=== PATIENT | male | born 1935 | race Hispanic/Latino ===

== ENCOUNTER 2016-12-16 20:58 | Inpatient (IN) | payer MEDICARE ==
--- NOTE | 2016-12-16 21:25 | Emergency Department Report ---
HPI - General Time Seen by Provider: 12/16/16 21:20 - HPI HPI: This is a 81-year-old male who presents to the emergency department by EMS from [facility] with complaint of altered mental status. The patient himself has no complaints at this time, however, allegedly the ECF says he has been acting altered for the past 2 days. Patient has a history of anemia, Raghav body dementia, depressive disorder. The patient himself says that he does not ambulate well. His primary care doctor is listed as Dr. Felix Lemus. Patient is a poor historian secondary to his dementia. He is currently AAO [address] 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 - Social History Smoking Status: Unknown if ever smoked - Medications Home Medications: Home Medications Medication Instructions Recorded Confirmed Last Taken Type Aspirin [Aspirin TAB] 81 mg PO QDAY tablet 09/11/16 09/29/16 Unknown Rx Folic Acid [Folvite] 1 mg PO QDAY tablet 09/11/16 09/29/16 Unknown Rx Losartan [Cozaar] 50 mg PO QDAY tablet 09/11/16 09/29/16 Unknown Rx Metoprolol [Lopressor TAB] 25 mg PO BID #60 tablet 09/11/16 09/29/16 Unknown Rx Rivastigmine Tartrate [Exelon] 1.5 mg PO BID capsule 09/11/16 09/29/16 Unknown Rx Thiamine [Vitamin B-1] 100 mg PO QDAY tablet 09/11/16 09/29/16 Unknown Rx cloNIDine [Catapres] 0.1 mg PO Q8H PRN #90 tablet 09/11/16 09/29/16 Unknown Rx hydrALAZINE [Apresoline TAB] 25 mg PO Q8HR tablet 09/11/16 09/29/16 Unknown Rx risperiDONE [RisperDAL] 0.25 mg PO BID@0800,1400 #60 tablet 09/11/16 09/29/16 Unknown Rx traZODone [Desyrel] 50 mg PO QHS tablet 09/11/16 09/29/16 Unknown Rx ED Review of Systems ROS: Stated complaint: AMS Other details as noted in HPI Comment: Unobtainable due to pts medical conditions Physical Exam - Physical Exam Physical Exam: GENERAL: The patient is well-developed well-nourished. HEENT: Normocephalic. Atraumatic. Extraocular motions are intact. Patient has moist mucous membranes. Pupils equal reactive to light bilaterally. No nystagmus. NECK: Supple. Trachea is midline. CHEST/LUNGS: Clear to auscultation. There is no respiratory distress noted. HEART/CARDIOVASCULAR: Regular. There is no tachycardia. There is no gallop rub or murmur. ABDOMEN: Abdomen is soft, nontender. Patient has normal bowel sounds. There is no abdominal distention. SKIN: Skin is warm and dry. NEURO: The patient is awake, alert. AAO [address] but not time. The patient is cooperative. The patient has no focal neurologic deficits. The patient has normal speech. MUSCULOSKELETAL: There is no tenderness or deformity. There is no limitation range of motion. There is no evidence of acute injury. ED Medical Decision Making - Lab Data Result diagrams: 12/16/16 23:27 12/16/16 23:27 - EKG Data -: EKG Interpreted by Me EKG shows normal: sinus rhythm, axis, intervals, QRS complexes (RBBB), ST-T waves Rate: normal - EKG Data When compared to previous EKG there are: previous EKG unavailable Interpretation: other (RBBB) - Radiology Data Radiology results: report reviewed, image reviewed interpreted by me: Chest x-ray did not show any acute process. Heart is normal shape and size. No effusions. No pneumothorax. No signs of pneumonia seen. CT of the head does not show any acute process including no hemorrhage, mass, shift, diffuse edema or skull fracture. - Medical Decision Making 81-year-old male presents to the emergency department with some altered mental status. 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 CT of the head does not show any bleed, shift, mass or any acute process. EKG shows a right bundle-branch block but otherwise no signs of ST elevation MD or ischemia. Most the patient's labs appear unremarkable do not show any etiology of the altered mental status. She the patient's advanced age, his history of Sho body dementia, and the history of change in mental status, patient will be admitted for further evaluation and has been accepted for admission by the hospitalist, Dr. Purcell. - Differential Diagnosis dementia, TIA, CVA, brain bleed, sepsis Critical Care Time: No Critical care attestation.: If time is entered above; I have spent that time in minutes in the direct care of this critically ill patient, excluding procedure time. ED Disposition Clinical Impression: Altered mental status Dementia Qualifiers: Dementia type: unspecified type Dementia behavioral disturbance: without behavioral disturbance Qualified Code(s): F03.90 - Unspecified dementia without behavioral disturbance Disposition: OP ADMITTED IP TO THIS HOSP Is pt being admited?: Yes Condition: Stable Time of Disposition: 04:48
--- NOTE | 2016-12-16 22:48 | Cat Scan Report ---
FINAL REPORT PROCEDURE: CT HEAD/BRAIN WO CON TECHNIQUE: Computerized tomography of the head was performed without contrast material. HISTORY: Altered Mental Status COMPARISON: 08/19/2016 FINDINGS: Skull and scalp: Normal. Paranasal sinuses: Complex fluid in material in the right sphenoid sinus. Ventricles and subarachnoid spaces: Moderately enlarged ventricles likely in proportionate degree to volume loss related to atrophy Cerebrum: No evidence of hemorrhage, acute infarction or mass . Cerebellum and brainstem: No evidence of hemorrhage, acute infarction or mass. Vasculature: Dominant left vertebral artery. Comments: Moderate diffuse atrophy with mild periventricular microischemic change and central lacunar infarct disease as well as suspected lacunar infarct disease in the right temporal insula greater than left. These changes appear most likely chronic. If symptoms and or concern persist consider MRI.. IMPRESSION: No acute intracranial pathology suspected at this time
[2016-12-17] LABS: Mucus,Urine FEW /HPF
[2016-12-17 00:03] LABS: INR 1.02 (0.87-1.13)
[2016-12-17 00:04] LABS: Partial Thromboplastin Time 26.9 Sec. (24.2-36.6)
[2016-12-17 00:06] LABS: Alanine Aminotransferase 8 units/L (7-56); Albumin 3.8 g/dL (3.9-5); Albumin/Globulin Ratio 1.1 %; Alkaline Phosphatase 92 units/L (35-129); Anion Gap 18 mmol/L; BUN/Creatinine Ratio 24.28; Bilirubin,Total 0.5 mg/dL (0.1-1.2); Blood Urea Nitrogen 17 mg/dL (9-20); Calcium 9.2 mg/dL (8.4-10.2); Carbon Dioxide 27 mmol/L (22-30); Chloride 96.8 mmol/L (98-107); Creatine Kinase 40 units/L (55-170); Glucose 100 mg/dL (75-100); Potassium 4.6 mmol/L (3.6-5.0); Sodium 137 mmol/L (137-145); Total Protein 7.4 g/dL (6.3-8.2)
[2016-12-17 00:12] LABS: Bilirubin,Urine Negative (Negative); Blood,Urine Moderate (Negative); Ketones,Urine Negative (Negative); PH,Urine 6.5 (5.0-7.0); Protein,Urine <30 mg dL mg/dL (Negative)
[2016-12-17 00:13] LABS: Leukocyte Esterase,Urine Negative (Negative); Nitrite,Urine Negative (Negative); Urobilinogen,Urine < 2.0 mg/dL (<2.0)
[2016-12-17 00:28] LABS: Eosinophils % (Auto) 3.2 % (0.0-4.3)
[2016-12-17 01:46] LABS: Basophils % (Auto) 0.9 % (0.0-1.8); Hematocrit 42.9 % (35.5-45.6); Mean Corpuscular HGB Conc 33 % (32-34); Mean Corpuscular Hemoglobin 28 pg (28-32); Mean Corpuscular Volume 86 fl (84-94); Platelet Count 383 K/mm3 (140-440); Red Blood Count 4.97 M/mm3 (3.65-5.03); Red Cell Distribution Width 14.6 % (13.2-15.2); White Blood Count 9.2 K/mm3 (4.5-11.0)
--- NOTE | 2016-12-17 03:24 | History and Physical Report ---
History of Present Illness Date of examination: 12/17/16 Date of admission: 12/17/16 Chief complaint: AMS History of present illness: This is a 81-year-old male who presents to the emergency department by EMS from [facility] with complaint of altered mental status. The patient himself has no complaints at this time, however, allegedly the correction reports he has been acting altered for the past 2 days. Patient has a history of anemia, Lewy body dementia, depressive disorder. All of the history was obtained from the ER record. Upon my interview, patient was somnolent and lethargic but arousable. Patient poor historian and unable to give any history. He currently is not alert or oriented. However, he complains of no pain. Past History Past Medical History: anemia, other (recent hip fx, lewy body dementia, depression) Past Surgical History: total hip replacement Social history: other (unable to obtain do to mental status) Family history: other (unable to obtain do to mental status) Medications and Allergies Allergies Allergy/AdvReac Type Severity Reaction Status Date / Time No Known Allergies Allergy Unverified 08/16/16 11:38 Home Medications Medication Instructions Recorded Confirmed Last Taken Type Aspirin [Aspirin TAB] 81 mg PO QDAY tablet 09/11/16 09/29/16 Unknown Rx Folic Acid [Folvite] 1 mg PO QDAY tablet 09/11/16 09/29/16 Unknown Rx Losartan [Cozaar] 50 mg PO QDAY tablet 09/11/16 09/29/16 Unknown Rx Metoprolol [Lopressor TAB] 25 mg PO BID #60 tablet 09/11/16 09/29/16 Unknown Rx Rivastigmine Tartrate [Exelon] 1.5 mg PO BID capsule 09/11/16 09/29/16 Unknown Rx Thiamine [Vitamin B-1] 100 mg PO QDAY tablet 09/11/16 09/29/16 Unknown Rx cloNIDine [Catapres] 0.1 mg PO Q8H PRN #90 tablet 09/11/16 09/29/16 Unknown Rx hydrALAZINE [Apresoline TAB] 25 mg PO Q8HR tablet 09/11/16 09/29/16 Unknown Rx risperiDONE [RisperDAL] 0.25 mg PO BID@0800,1400 #60 tablet 09/11/16 09/29/16 Unknown Rx traZODone [Desyrel] 50 mg PO QHS tablet 09/11/16 09/29/16 Unknown Rx Review of Systems ROS unobtainable: due to mental status Exam - Constitutional Vitals: Temp Pulse Resp BP Pulse Ox 98.9 F 77 15 111/78 96 12/16/16 21:39 12/16/16 21:39 12/16/16 21:39 12/16/16 21:39 12/16/16 21:39 General appearance: Present: no acute distress, well-nourished - EENT Eyes: Present: PERRL ENT: hearing intact, clear oral mucosa - Neck Neck: Present: supple, normal ROM - Respiratory Respiratory effort: normal Respiratory: bilateral: CTA - Cardiovascular Heart Sounds: Present: S1 & S2. Absent: rub, click - Extremities Extremities: pulses symmetrical, No edema Peripheral Pulses: within normal limits - Abdominal General gastrointestinal: Present: soft, non-tender, non-distended, normal bowel sounds Male genitourinary: Present: normal - Integumentary Integumentary: Present: clear, warm, dry - Musculoskeletal Musculoskeletal: gait normal, strength equal bilaterally - Psychiatric Psychiatric: appropriate mood/affect, intact judgment & insight - Neurologic Neurologic: CNII-XII intact, moves all extremities Results - Labs CBC & Chem 7: 12/16/16 23:27 12/16/16 23:27 Labs: Laboratory Last Values WBC 9.2 K/mm3 (4.5-11.0) 12/16/16 23:27 RBC 4.97 M/mm3 (3.65-5.03) 12/16/16 23:27 Hgb 14.0 gm/dl (11.8-15.2) 12/16/16 23:27 Hct 42.9 % (35.5-45.6) 12/16/16 23:27 MCV 86 fl (84-94) 12/16/16 23:27 MCH 28 pg (28-32) 12/16/16 23:27 MCHC 33 % (32-34) 12/16/16 23:27 RDW 14.6 % (13.2-15.2) 12/16/16 23:27 Plt Count 383 K/mm3 (140-440) 12/16/16 23:27 Lymph % (Auto) 26.2 % (13.4-35.0) 12/16/16 23:27 [facility] % (Auto) 9.8 % (0.0-7.3) H 12/16/16 23: Eos % (Auto) 3.2 % (0.0-4.3) 12/16/16 23: Baso % (Auto) 0.9 % (0.0-1.8) 12/16/16: Lymph # 2.4 K/mm3 (1.2-5.4) 12/16/16: [facility] # 0.9 K/mm3 (0.0-0.8) H 12/16/16 23: Eos # 0.3 K/mm3 (0.0-0.4) 12/16/16: Baso # 0.1 K/mm3 (0.0-0.1) 12/16/16: Seg Neutrophils % 61.0 % (40.0-70.0) 12/16/16: Seg Neutrophils # 5.5 K/mm3 (1.8-7.7) 12/16/16 23: PT 13.3 Sec. (12.2-14.9) 12/16/16: INR 1.02 (0.87-1.13) 12/16/16: APTT 26.9 Sec. (24.2-36.6) 12/16/16 23: Sodium 137 mmol/L (137-145) 12/16/16: Potassium 4.6 mmol/L (3.6-5.0) 12/16/16: Chloride 96.8 mmol/L (98-107) L 12/16/16: Carbon Dioxide 27 mmol/L (22-30) 12/16/16: Anion Gap 18 mmol/L 12/16/16: BUN 17 mg/dL (9-20) 12/16/16: Creatinine 0.7 mg/dL (0.8-1.5) L 12/16/16: Estimated GFR > 60 ml/min 12/16/16 23: BUN/Creatinine Ratio 24.28 % 12/16/16: Glucose 100 mg/dL (75-100) 12/16/16: Lactic Acid 1.3 mmol/L (0.7-2.0) 12/16/16 23: Calcium 9.2 mg/dL (8.4-10.2) 12/16/16: Total Bilirubin 0.5 mg/dL (0.1-1.2) 12/16/16 23: AST 17 units/L (5-40) 12/16/16: ALT 8 units/L (7-56) 12/16/16: Alkaline Phosphatase 92 units/L (35-129) 12/16/16: Ammonia 31.0 umol/L (25-60) 12/16/16: Total Creatine Kinase 40 units/L (55-170) L 12/16/16 Troponin T < 0.010 ng/mL (0.00-0.029) 12/17/16 01:39 Total Protein 7.4 g/dL (6.3-8.2) 12/16/16: Albumin 3.8 g/dL (3.9-5) L 12/16/16: Albumin/Globulin Ratio 1.1 % 12/16/16: TSH 0.695 mlU/mL (0.270-4.200) 12/16/16 23: Urine Color Yellow (Yellow) 12/16/16 23: Urine Turbidity Clear (Clear) 12/16/16 23: Urine pH 6.5 (5.0-7.0) 12/16/16 23: Ur Specific Sumner 1.015 (1.003-1.030) 12/16/16 23: Urine Protein <30 mg dl mg/dL (Negative) 12/16/16 23: Urine Glucose (UA) Negative mg/dL (Negative) 12/16/16 23: Urine Ketones Negative mg/dL (Negative) 12/16/16 23: Urine Blood Moderate (Negative) 12/16/16 23: Urine Nitrite Negative (Negative) 12/16/16 23: Ur Reducing Substances Not Reportable 12/16/16 23: Urine Bilirubin Negative (Negative) 12/16/16 23: Urine Ictotest Not Reportable 12/16/16 23: Urine Urobilinogen < 2.0 mg/dL (<2.0) 12/16/16 23:22 Ur Leukocyte Esterase Negative (Negative) 12/16/16 23:22 Urine WBC (Auto) 2.0 /HPF (0.0-6.0) 12/16/16 23:22 Urine RBC (Auto) 18.0 /HPF (0.0-6.0) 12/16/16 23:22 Urine Mucus Few /HPF 12/16/16 23:22 Assessment and Plan Assessment and plan: 1. Acute encephalopathy. Patient does have a history of underlying dementia. Unsure of the patient's baseline mental status. CT scan of the head is negative. Neurology consultation. 2. Hypertension. Resume antihypertensive medications. 3. Dementia. Patient was previously hospitalized August of last year with chronic worsening dementia requiring adjustments in medications. We'll also consult psychiatry.
[2016-12-17] MEDS ORDERED: DULCOLAX PR PRN (03:29)
[2016-12-17] MEDS ORDERED: MILK OF MAGNESIA PO PRN (03:29)
[2016-12-17] MEDS ORDERED: TYLENOL PO PRN (03:29)
[2016-12-17] MEDS ORDERED: ZOFRAN IV PRN (03:29)
[2016-12-17 05:21] LABS: Blastocytes % (Manual) 0 %
[2016-12-17 05:22] LABS: Anisocytosis 1+; Diff Status Complete; Platelet Estimate Consistent w Auto
--- NOTE | 2016-12-17 05:40 | Admit Criteria Form ---
Admission Criteria Documentation: MENTAL STATUS CHANGE Clinical Indications for Inpatient Care (Place 'X' for any and all applicable criteria): Ongoing inpatient care may be needed for ANY ONE of the following(1)(2)(3)(5)(6) : [X ]I. Suspected serious etiology (eg, medical disorder, DOULA event) of mental status change [ ]II. Danger to self or others not manageable at lower level of care [ ]III. Grave disability (eg, inability to perform self care necessary at lower level of care) [ ]IV. Agitation or inappropriate behavior interfering with care for primary condition (eg, attempting to discontinue lines or drains prematurely, unable to cooperate with respiratory care) [ ]V. Delirium [A] [D][E] as described by ANY ONE of the following(26): [ ]a) Delirium due to alcohol or sedative [F] withdrawal [ ]b) Delirium of uncertain etiology that has not responded to appropriate empiric treatment [ ]c) Delirium that prevents performance of a life-sustaining function (eg, feeding or hydrating oneself) [ ]. General contraindications and/or Inappropriate clinical situations for Observational Care in patients with Mental Status Change, when ANY ONE of the following is required: [ ]a) Prediction of prolongation of LOS based on ANY ONE of the following may be considered as a contraindication for observational care 2, 3, 4, 5, 6, 7, 8, 9, 10, 11 [ ]i) Age > 65 yrs. [ ]ii) Patient arriving by ambulance [ ]iii) Patient with high acuity [ ]iv) Patient requiring vital sign monitoring [ ]v) Patient on IV medication [ ]b) Systolic blood pressures 180mmHg 3,12 [ ]c) Patient with altered mental status including delirium and other alteration of consciousness, (3) [ ]d) Patient whose discharge disposition will be to a correction home or rehabilitation home should not be managed in Emergency Department Observation Unit. CMS rule requires 3 days hospital stay before such placement.3,13 [ ]e) Patient with failure to thrive due to broad array of etiologies 3,16,17 [ ]f) Inability to ambulate 3,14 Extended stay beyond goal length of stay for the primary condition may be needed until ALL of the following are present(3)(5): [ ]a) Underlying medical etiology of mental status change is absent, or has been established and adequately treated [ ]b) Danger to self or others is absent or manageable at lower level of care. [ ]c) Behavior crisis management, including physical or chemical restraints, is not required or available at lower level of car [ ]d) Substance or alcohol withdrawal is absent or manageable at lower level of care. [ ]e) Behavioral symptoms (eg, agitation, somnolence, inappropriate behavior) are absent, or are manageable at lower level of care. The original [email or web address] content created by [employer] has been revised. The portions of the content which have been revised are identified through the use of italic text or in bold, and [facility] has neither reviewed nor approved the modified material. All other unmodified content is copyright [email or web address]. Please see references footnoted in the original [facility] edition 2016 Admission Criteria Met: Yes
[2016-12-17] MEDS ORDERED: CATAPRES PO PRN (09:04)
[2016-12-17] MEDS: APRESOLINE PO SCH ×3 (09:10→23:10)
--- NOTE | 2016-12-17 09:25 | XRay Report ---
AP CHEST: HISTORY: Altered mental status. FINDINGS: Compared to the CT chest dated 08/17/16. 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 Heart size and pulmonary vascularity are within normal limits. There is hazy opacity at the lateral right lung base which may represent segmental atelectasis or small right pleural effusion. No convincing pneumonia or pneumothorax. IMPRESSION: No acute cardiopulmonary process is appreciated. Subtle, right lower lobe opacity which probably represents atelectasis or small effusion. Substernal thyroid.
[2016-12-17] MEDS: D5/0.45NS 1,000 ML IV SCH ×2 (09:26→23:11)
[2016-12-17] MEDS: RisperDAL PO SCH ×2 (11:56→17:41)
[2016-12-17] MEDS: ASPIRIN PO SCH (15:58)
[2016-12-17] MEDS: LOPRESSOR PO SCH ×2 (15:59→23:09)
[2016-12-17] MEDS: VITAMIN B-1 PO SCH (15:59)
[2016-12-17] MEDS: FOLVITE PO SCH (16:00)
[2016-12-17] MEDS: COZAAR PO SCH (16:00)
[2016-12-17] MEDS: EXELON PO SCH ×2 (16:04→23:09)
--- NOTE | 2016-12-17 16:26 | Event Note ---
Date: 12/17/16 Patient seen and examined, the patient's [id number] was at bedside, who is the only family that patient have. According to the uogast-by-jem very recently patient's mental status has been changed, he appears to be much more calm and quiet, and seems does not want to talk at all. Patient also noted to have very poor oral intake and lost significant body weight. If necessary she is considering PEG tube for the patient for nutrition purpose. 1. Acute encephalopathy. Patient does have a history of underlying dementia. CT scan of the head is negative. Neurology consultation. Will do speech eval. 2. Hypertension. Resumed antihypertensive medications. 3. Dementia. Patient was previously hospitalized August of last year with chronic worsening dementia requiring adjustments in medications. psychiatry consult pending. Patient will have speech eval today, if he can't tolerate by mouth his oral intake will be monitored. If he continued to have poor oral intake will consult GI for PEG tube for nutrition purpose.
[2016-12-17] MEDS: LOVENOX SUB-Q SCH (18:36)
[2016-12-17] MEDS ORDERED: DESYREL PO SCH (22:00)
[2016-12-18] MEDS: APRESOLINE PO SCH ×2 (05:42→17:17)
[2016-12-18 08:22] LABS: Anion Gap 15 mmol/L; BUN/Creatinine Ratio 15.71; Blood Urea Nitrogen 11 mg/dL (9-20); Calcium 8.6 mg/dL (8.4-10.2); Carbon Dioxide 26 mmol/L (22-30); Chloride 98.6 mmol/L (98-107); Glucose 122 mg/dL (75-100); Potassium 4.1 mmol/L (3.6-5.0); Sodium 135 mmol/L (137-145)
[2016-12-18] MEDS: LOPRESSOR PO SCH (09:30)
[2016-12-18] MEDS: RisperDAL PO SCH ×2 (09:31→17:18)
[2016-12-18] MEDS: FOLVITE PO SCH (09:31)
[2016-12-18] MEDS: VITAMIN B-1 PO SCH (09:31)
[2016-12-18] MEDS: LOVENOX SUB-Q SCH (09:32)
[2016-12-18] MEDS: COZAAR PO SCH (09:32)
[2016-12-18] MEDS: EXELON PO SCH (12:16)
--- NOTE | 2016-12-18 12:47 | Discharge Summary ---
Providers - Providers Date of Admission: 12/17/16 03:29 Date of discharge: 12/18/16 Attending physician: MINAL IRAHETA 12/17/16 09:35 Speech Therapy Evaluation and Treat [CONS] Routine Reason For Exam: evaluate and treat Primary care physician: SABRINA PRADO Hospitalization Condition: Stable Hospital course: HPI: This is a 81-year-old male who presents to the emergency department by EMS from [facility] with complaint of altered mental status. The patient himself has no complaints at this time, however, allegedly the detention reports he has been acting altered for the past 2 days. Patient has a history of anemia, Lewy body dementia, depressive disorder. All of the history was obtained from the ER record. During admission, patient was somnolent and lethargic but arousable and unable to provide any history. Discharge Diagnosis and management per problem: 1. Acute metabolic/toxic encephalopathy. * Patient does have a history of underlying dementia. * CT scan of the head shows lacunar infract. * resolved with IV fluid, symptom likely due to dehydration vs polyphermacy * s/p ST eval, recommended regular diet with thickened liquid * neurology recommended risk factor modification and 2ndary prevention from acute CVA 2. Hypertension. * continue metoprolol * d/c cozzar and hydralazine. * as needed clonidine 3. Dementia and h/o depression. * Patient was previously hospitalized August of last year with chronic worsening dementia requiring adjustments in medications. * will change risperdal to once a day at bed time, continue exelon current dose , added Namenda 4. H/o anemia * H and stable Disposition: DC/TX SNF [facility] Time spent for discharge: 32 minutes Core Measure Documentation - Palliative Care Palliative Care/ Comfort Measures: Not Applicable - Core Measures Any of the following diagnoses?: none Exam - Constitutional Vitals: Temp Pulse Resp BP Pulse Ox 98.3 F 83 20 156/75 97 12/18/16 08:00 12/18/16 08:00 12/18/16 08:00 12/18/16 09:32 12/18/16 10:00 General appearance: Present: no acute distress - EENT Eyes: Present: PERRL, EOM intact ENT: hearing intact, clear oral mucosa - Neck Neck: Present: supple, normal ROM - Respiratory Respiratory effort: normal Respiratory: bilateral: CTA - Cardiovascular Rhythm: regular Heart Sounds: Present: S1 & S2 - Extremities Extremities: no ischemia, No edema Peripheral Pulses: within normal limits - Abdominal General gastrointestinal: Present: soft, non-tender, distended, normal bowel sounds Male genitourinary: Present: deferred - Rectal Rectal Exam: deferred - Integumentary Integumentary: Present: warm, dry - Musculoskeletal Musculoskeletal: generalized weakness - Psychiatric Psychiatric: cooperative - Neurologic Neurologic: no focal deficits Plan Activity: up only with assistance, fall precautions Weight Bearing Status: Non-Weight Bearing Diet: regular (thicked liquid) Follow up with: SABRINA PRADO MD [Primary Care Provider] - 7 Days Prescriptions: AtorvaSTATin [Lipitor] 20 mg PO QHS #30 tablet Memantine HCl [Namenda] 10 mg PO BID #60 ml
[2016-12-18] MEDS: ASPIRIN PO SCH (13:08)
--- NOTE | 2016-12-18 15:03 | Consultation ---
History of Present Illness - Reason for Consult Consult date: 12/18/16 ams - History of Present Illness I reviewed over the CT of the ad personally and there are considerable areas of lacunar infarcts- chronic as well as microvascular ischemic changes rec medical therapy for stroke prophylaxis... consider use of namenda to help with confusion Past History Past Medical History: anemia, other (recent hip fx, lewy body dementia, depression) Past Surgical History: total hip replacement Social history: other (unable to obtain do to mental status) Family history: other (unable to obtain do to mental status) Medications and Allergies Allergies Allergy/AdvReac Type Severity Reaction Status Date / Time No Known Allergies Allergy Unverified 08/16/16 11:38 Home Medications Medication Instructions Recorded Confirmed Last Taken Type Aspirin [Aspirin TAB] 81 mg PO QDAY tablet 09/11/16 09/29/16 1 Day Ago Rx 81 Folic Acid [Folvite] 1 mg PO QDAY tablet 09/11/16 09/29/16 1 Day Ago Rx 1 Metoprolol [Lopressor TAB] 25 mg PO BID #60 tablet 09/11/16 12/17/16 1 Day Ago Rx 25 Rivastigmine Tartrate [Exelon] 1.5 mg PO BID capsule 09/11/16 12/17/16 1 Day Ago Rx 1.5 Thiamine [Vitamin B-1] 100 mg PO QDAY tablet 09/11/16 12/17/16 1 Day Ago Rx 100 traZODone [Desyrel] 50 mg PO QHS tablet 09/11/16 12/17/16 1 Day Ago Rx 50 risperiDONE [RisperDAL] 0.25 mg PO QHS #60 tablet 12/18/16 12/17/16 1 Day Ago Rx 0.25 Active Meds: Active Medications Acetaminophen (Tylenol) 650 mg PO Q4H PRN PRN Reason: Pain MILD(1-3)/Fever >100.5/BLACK Aspirin (Aspirin) 81 mg PO QDAY [facility] Last Admin: 12/18/16 13:08 Dose: 81 mg Bisacodyl (Dulcolax) 10 mg [place] QDAY PRN PRN Reason: Constipation unrelieved by MOM Clonidine HCl (Catapres) 0.1 mg PO Q8H PRN PRN Reason: Hypertension Enoxaparin Sodium (Lovenox) 40 mg SUB-Q QDAY [facility] Last Admin: 12/18/16 09:32 Dose: 40 mg Folic Acid (Folvite) 1 mg PO QDAY [facility] Last Admin: 12/18/16 09:31 Dose: 1 mg Hydralazine HCl (Apresoline) 25 mg PO Q8HR [facility] Last Admin: 12/18/16 05:42 Dose: Not Given Dextrose/Sodium Chloride (D5/0.45ns) 1,000 mls @ 75 mls/hr IV DIRECT [facility] Last Admin: 12/17/16 23:11 Dose: 75 mls/hr Losartan Potassium (Cozaar) 50 mg PO QDAY [facility] Last Admin: 12/18/16 09:32 Dose: 50 mg Magnesium Hydroxide (Milk Of Magnesia) 30 ml PO Q4H PRN PRN Reason: Constipation Metoprolol Tartrate (Lopressor) 25 mg PO BID [facility] Last Admin: 12/18/16 09:30 Dose: 25 mg Ondansetron HCl (Zofran) 4 mg IV Q8H PRN PRN Reason: N/V unrelieved by Adriana Risperidone (Risperdal) 0.25 mg PO BID@0800,1400 [facility] Last Admin: 12/18/16 09:31 Dose: 0.25 mg Rivastigmine Tartrate (Exelon) 1.5 mg PO BID [facility] Last Admin: 12/18/16 12:16 Dose: 1.5 mg Thiamine HCl (Vitamin B-1) 100 mg PO QDAY [facility] Last Admin: 12/18/16 09:31 Dose: 100 mg Trazodone HCl (Desyrel) 50 mg PO QHS [facility] Last Admin: 12/17/16 23:10 Dose: 50 mg Exam - Constitutional Vitals: Temp Pulse Resp BP Pulse Ox 98.3 F 83 20 156/75 97 12/18/16 08:00 12/18/16 08:00 12/18/16 08:00 12/18/16 09:32 12/18/16 10:00 Results - Labs CBC & Chem 7: 12/16/16 23:27 12/18/16 07:24 Labs: Abnormal lab results 12/18/16 Range/Units 07:24 Sodium 135 L (137-145) mmol/L Creatinine 0.7 L (0.8-1.5) mg/dL Glucose 122 H (75-100) mg/dL
[2016-12-18 18:29] VITALS: BP 156/75
== END 2016-12-18 18:37 | DRG 93 ==
LOC: ED 20:58 → 3A 12-17 03:29
PROVIDERS: ADMIT Hospitalist; ATTEND Internal Medicine
DX: G92 Toxic encephalopathy (principal); I10 Essential (primary) hypertension; G31.83 Neurocognitive disorder with Lewy bodies; F02.80 Dementia in other diseases classified elsewhere, unspecified severity, without behavioral disturbance, psychotic disturbance, mood disturbance, and anxiety; F32.9 Major depressive disorder, single episode, unspecified; E11.9 Type 2 diabetes mellitus without complications; Z79.899 Other long term (current) drug therapy; Z79.82 Long term (current) use of aspirin; H57.02 Anisocoria
CPT/HCPCS: 36415; 70450; 71010; 80048; 80053; 81001; 82140; 82550; 84443; 84484; 85007; 85025; 85610; 85730; 93005; 93010; G8996-GN; G8997-GN; J1650

== ENCOUNTER 2017-02-22 05:06 | Inpatient (IN) | payer MEDICARE ==
[2017-02-22 05:23] LABS: INR 1.33 (0.87-1.13)
[2017-02-22 05:24] LABS: Partial Thromboplastin Time 44.9 Sec. (24.2-36.6)
[2017-02-22 05:29] LABS: Hematocrit 33.9 % (35.5-45.6); Hemoglobin 10.5 gm/dl (11.8-15.2); Mean Corpuscular HGB Conc 31 % (32-34); Mean Corpuscular Hemoglobin 26 pg (28-32); Mean Corpuscular Volume 83 fl (84-94); Platelet Count 414 K/mm3 (140-440); Red Blood Count 4.06 M/mm3 (3.65-5.03); Red Cell Distribution Width 15.5 % (13.2-15.2); White Blood Count 10.8 K/mm3 (4.5-11.0)
[2017-02-22 05:34] LABS: Alanine Aminotransferase 17 units/L (7-56); Albumin 1.8 g/dL (3.9-5); Albumin/Globulin Ratio 0.4 %; Alkaline Phosphatase 121 units/L (35-129); Anion Gap 18 mmol/L; BUN/Creatinine Ratio 23.33; Bilirubin,Total 0.4 mg/dL (0.1-1.2); Blood Urea Nitrogen 21 mg/dL (9-20); Calcium 8.7 mg/dL (8.4-10.2); Carbon Dioxide 26 mmol/L (22-30); Chloride 113.7 mmol/L (98-107); Glucose 144 mg/dL (75-100); Potassium 3.6 mmol/L (3.6-5.0); Sodium 154 mmol/L (137-145); Total Protein 6.7 g/dL (6.3-8.2)
[2017-02-22 05:35] LABS: Creatine Kinase 18 units/L (55-170)
[2017-02-22] MEDS ORDERED: CARDIZEM IV ONE ×2 (05:42→05:50)
[2017-02-22 05:43] LABS: Creatine Kinase MB < 1.0 ng/mL (0.0-4.0)
[2017-02-22] MEDS ORDERED: CARDIZEM/D5W 100MG/100ML 100 MG/100 ML BAG IV SCH (06:00)
[2017-02-22 06:03] LABS: Cholesterol 65 mg/dL (50-199); HDL Cholesterol 26 mg/dL (40-59); LDL Cholesterol,Direct 26 mg/dL (50-130); Triglycerides 67 mg/dL (2-149)
[2017-02-22] MEDS ORDERED: VANCOMYCIN/NS 1 GM/250 ML 1 GM/250 ML BAG IV ONE (06:19)
[2017-02-22] MEDS ORDERED: TYLENOL PR ONE (06:19)
[2017-02-22] MEDS ORDERED: KETALAR IV ONE ×3 (06:19)
[2017-02-22] MEDS ORDERED: ZOSYN/NS 4.5GM/100ML 4.5 GM/100 ML VIAL IV ONE (06:19)
[2017-02-22] MEDS ORDERED: NACL 0.9% 1000 ML 2,000 ML IV ONE (06:19)
[2017-02-22 06:21] LABS: ISTAT Base Excess 2; ISTAT HCO3 25.8; ISTAT PO2 67 (80-105); ISTAT SO2 94; ISTAT TCO2 27
--- NOTE | 2017-02-22 06:22 | Emergency Department Report ---
ED General Adult HPI - General Chief complaint: Dyspnea/Respdistress Stated complaint: LORIN Time Seen by Provider: 02/22/17 06:09 Source: EMS (ems notes not available at time of chart dictation), RN notes reviewed, old records reviewed Mode of arrival: Stretcher Limitations: Altered Mental Status - History of Present Illness Initial comments: This is an 81-year-old male. He is previously unknown to me. Primary care physician Dr. Wilkins. Past medical history includes anemia, dementia, hypertension. Patient is brought to the hospital by EMS for respiratory distress. Upon arrival to the ER, patient was found to be hypoxic, hypotensive, tachypnea , and A. fib with RVR. Patient is DO NOT RESUSCITATE, DO NOT INTUBATE. Contrary to what is documented in his advanced directives, his healthcare proxy/healthcare decision maker, Mr. KAE Young has authorized IV fluids, IV antibiotics. Phone number [phone] Patient wasn't markedly respiratory distress upon arrival, he was given ketamine , 25 mg, rectal acetaminophen, 2 L of IV fluid, started on BiPAP therapy, and treated empirically for healthcare associated pneumonia. An x-ray of the chest demonstrated diffuse infiltrates at the right lung base, suggestive of pneumonitis. In addition, dilated air-fluid loops of bowel were noted in the abdomen, suggestive of ileus versus obstruction. The goals of care and acquisition of diagnostics were clarified with the patient's healthcare proxy Mr. Young. He reiterated his desire for no intubation, but authorized positive pressure ventilation, IV fluids, IV antibiotics. We discussed placement of a nasogastric tube, I did not think that this was feasible given the patient's current respiratory status, and the patient's healthcare proxy occurred. At this point in time, the patient's healthcare proxy would prefer that the patient 's respiratory status stabilized, and if the CT scan can be obtained later on down stream when the patient is more comfortable, he is okay with this. At this point in time, the patient's healthcare proxy like for the patient to be made comfortable. -: Gradual Severity scale (0 -10): 0 Consistency: constant Improves with: other (patient's respiratory status improved in the ER with IV fluids, BiPAP therapy, antibiotics) Worsens with: other (per hpi) Associated Symptoms: confusion, malaise, shortness of breath, weakness - Related Data Previous Rx's Medication Instructions Recorded Last Taken Type Aspirin [Aspirin TAB] 81 mg PO QDAY tablet 09/11/16 1 Day Ago Rx 81 Folic Acid [Folvite] 1 mg PO QDAY tablet 09/11/16 1 Day Ago Rx 1 Metoprolol [Lopressor TAB] 25 mg PO BID #60 tablet 09/11/16 1 Day Ago Rx 25 Rivastigmine Tartrate [Exelon] 1.5 mg PO BID capsule 09/11/16 1 Day Ago Rx 1.5 Thiamine [Vitamin B-1] 100 mg PO QDAY tablet 09/11/16 1 Day Ago Rx 100 traZODone [Desyrel] 50 mg PO QHS tablet 09/11/16 1 Day Ago Rx 50 AtorvaSTATin [Lipitor] 20 mg PO QHS #30 tablet 12/18/16 Unknown Rx Memantine HCl [Namenda] 10 mg PO BID #60 ml 12/18/16 Unknown Rx risperiDONE [RisperDAL] 0.25 mg PO QHS #60 tablet 12/18/16 1 Day Ago Rx 0.25 Allergies Allergy/AdvReac Type Severity Reaction Status Date / Time No Known Allergies Allergy Unverified 08/16/16 11:38 ED Review of Systems ROS: Stated complaint: LORIN Other details as noted in HPI Comment: Unobtainable due to pts medical conditions ED Past Medical Hx - Past Medical History Previous Medical History?: Yes Hx Hypertension: Yes Hx Diabetes: Yes Hx Liver Disease: No Hx Renal Disease: No Hx Dementia: Yes Additional medical history: Thyroid mass, - Surgical History 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 - Social History Smoking Status: Unknown if ever smoked - Medications Home Medications: Home Medications Medication Instructions Recorded Confirmed Last Taken Type Aspirin [Aspirin TAB] 81 mg PO QDAY tablet 09/11/16 09/29/16 1 Day Ago Rx 81 Folic Acid [Folvite] 1 mg PO QDAY tablet 09/11/16 09/29/16 1 Day Ago Rx 1 Metoprolol [Lopressor TAB] 25 mg PO BID #60 tablet 09/11/16 12/17/16 1 Day Ago Rx 25 Rivastigmine Tartrate [Exelon] 1.5 mg PO BID capsule 09/11/16 12/17/16 1 Day Ago Rx 1.5 Thiamine [Vitamin B-1] 100 mg PO QDAY tablet 09/11/16 12/17/16 1 Day Ago Rx 100 traZODone [Desyrel] 50 mg PO QHS tablet 09/11/16 12/17/16 1 Day Ago Rx 50 AtorvaSTATin [Lipitor] 20 mg PO QHS #30 tablet 12/18/16 Unknown Rx Memantine HCl [Namenda] 10 mg PO BID #60 ml 12/18/16 Unknown Rx risperiDONE [RisperDAL] 0.25 mg PO QHS #60 tablet 12/18/16 12/17/16 1 Day Ago Rx 0.25 ED Physical Exam - General Limitations: Altered Mental Status General appearance: lethargic, in distress - Head Head exam: Present: atraumatic, normocephalic - Eye Eye exam: Present: normal appearance - ENT ENT exam: Present: mucous membranes dry - Neck Neck exam: Present: normal inspection. Absent: tenderness, meningismus - Respiratory Respiratory exam: Present: respiratory distress, wheezes, rhonchi, accessory muscle use - Cardiovascular Cardiovascular Exam: Present: tachycardia, irregular rhythm, normal heart sounds. Absent: systolic murmur, diastolic murmur, rubs, gallop - GI/Abdominal GI/Abdominal exam: Present: soft, normal bowel sounds. Absent: distended, tenderness, guarding, rebound, rigid, pulsatile mass - Rectal Rectal exam: Present: other (sacral ulcer noted, 3 x 3 cm) - Extremities Exam Extremities exam: Present: normal inspection. Absent: calf tenderness - Back Exam Back exam: Present: normal inspection. Absent: paraspinal tenderness, vertebral tenderness - Neurological Exam Neurological exam: Present: altered - Psychiatric Psychiatric exam: Present: normal affect, normal mood - Skin Skin exam: Present: warm, dry, intact, normal color. Absent: rash ED Course Vital Signs 02/22/17 02/22/17 02/22/17 04:54 05:00 05:30 Temperature 99.2 F Pulse Rate 174 H 150 H Respiratory 46 H 30 H Rate Blood Pressure Blood Pressure 82/49 [Right] O2 Sat by Pulse 69 L 93 83 L Oximetry 02/22/17 02/22/17 02/22/17 06:00 06:11 06:27 Temperature Pulse Rate 117 H 121 H Respiratory 39 H 30 H 36 H Rate Blood Pressure 109/57 124/81 Blood Pressure [Right] O2 Sat by Pulse 98 90 94 Oximetry 02/22/17 02/22/17 02/22/17 06:58 07:01 08:01 Temperature Pulse Rate 107 H 106 H 100 H Respiratory 30 H 40 H 28 H Rate Blood Pressure 124/67 129/70 Blood Pressure 130/74 [Right] O2 Sat by Pulse 86 100 Oximetry - Reevaluation(s) Reevaluation #1: 02/22/17 08:21 Differential diagnosis: Respiratory failure, pneumonia, aspiration, reactive A. fib with RVR A. fib with RVR appreciated. Given the patient's clinical status, I think that this is most likely reactive to his underlying medical disease, I do not think luis blockade is appropriate. After IV fluids, acetaminophen, rate in the low 100s. Repeat EKG is ordered. ED Medical Decision Making - Lab Data Result diagrams: 02/22/17 05:05 02/22/17 05:05 Vital Signs 02/22/17 02/22/17 02/22/17 04:54 05:00 05:30 Temperature 99.2 F Pulse Rate 174 H 150 H Respiratory 46 H 30 H Rate Blood Pressure Blood Pressure 82/49 [Right] O2 Sat by Pulse 69 L 93 83 L Oximetry 02/22/17 02/22/17 02/22/17 06:00 06:11 06:27 Temperature Pulse Rate 117 H 121 H Respiratory 39 H 30 H 36 H Rate Blood Pressure 109/57 124/81 Blood Pressure [Right] O2 Sat by Pulse 98 90 94 Oximetry 02/22/17 02/22/17 06:58 07:01 Temperature Pulse Rate 107 H 106 H Respiratory 30 H 40 H Rate Blood Pressure 124/67 Blood Pressure 130/74 [Right] O2 Sat by Pulse 86 Oximetry Labs 02/22/17 02/22/17 02/22/17 05:05 05:05 05:05 WBC 10.8 RBC 4.06 Hgb 10.5 L Hct 33.9 L MCV 83 L MCH 26 L MCHC 31 L RDW 15.5 H Plt Count 414 Add Manual Diff Complete Total Counted 100 Seg Neutrophils % Party Demonstrator Seg Neuts % (Manual) 96.0 H Band Neutrophils % 2.0 Lymphocytes % (Manual) 0 L Reactive Lymphs % (Man) 1.0 Monocytes % (Manual) 1.0 Eosinophils % (Manual) 0 Basophils % (Manual) 0 Metamyelocytes % 0 Myelocytes % 0 Promyelocytes % 0 Blast Cells % 0 Nucleated RBC % Not Reportable Seg Neutrophils # Man 10.4 H Band Neutrophils # 0.2 Lymphocytes # (Manual) 0.0 L Abs React Lymphs (Man) 0.1 Monocytes # (Manual) 0.1 Eosinophils # (Manual) 0.0 Basophils # (Manual) 0.0 Metamyelocytes # 0.0 Myelocytes # 0.0 Promyelocytes # 0.0 Blast Cells # 0.0 WBC Morphology Not Reportable Hypersegmented Neuts Not Reportable Hyposegmented Neuts Not Reportable Hypogranular Neuts Not Reportable Smudge Cells Not Reportable Toxic Granulation Not Reportable Toxic Vacuolation Not Reportable Dohle Bodies Not Reportable Pelger-Huet Anomaly Not Reportable Stevie Rods Not Reportable Platelet Estimate Appears normal Clumped Platelets Not Reportable Plt Clumps, EDTA Not Reportable Large Platelets Not Reportable Giant Platelets Not Reportable Platelet Satelliting Not Reportable Plt Morphology Comment Not Reportable RBC Morphology Not Reportable Dimorphic RBCs Not Reportable Polychromasia Not Reportable Hypochromasia Not Reportable Poikilocytosis Not Reportable Anisocytosis 1+ Microcytosis Not Reportable Macrocytosis Not Reportable Spherocytes Not Reportable Pappenheimer Bodies Not Reportable Sickle Cells Not Reportable Target Cells Not Reportable Tear Drop Cells Not Reportable Ovalocytes Not Reportable Helmet Cells Not Reportable Parker-Bodega Bodies Not Reportable [place] Rings Not Reportable Pearl Cells Not Reportable Bite Cells Not Reportable Crenated Cell Not Reportable Elliptocytes Not Reportable Acanthocytes (Spur) Not Reportable Rouleaux Not Reportable Hemoglobin C Crystals Not Reportable Schistocytes Not Reportable Malaria parasites Not Reportable Abhijeet Bodies Not Reportable Hem Pathologist Commnt No PT 16.4 H INR 1.33 H APTT 44.9 H POC ABG pH POC ABG pCO2 POC ABG pO2 POC ABG HCO3 POC ABG Total CO2 POC ABG O2 Sat POC ABG Base Excess FiO2 Sodium 154 H Potassium 3.6 Chloride 113.7 H Carbon Dioxide 26 Anion Gap 18 BUN 21 H Creatinine 0.9 Estimated GFR > 60 BUN/Creatinine Ratio 23.33 Glucose 144 H Lactic Acid Calcium 8.7 Total Bilirubin 0.4 AST 26 ALT 17 Alkaline Phosphatase 121 Total Creatine Kinase CK-MB (CK-2) CK-MB (CK-2) Rel Index Troponin T Total Protein 6.7 Albumin 1.8 L Albumin/Globulin Ratio 0.4 Triglycerides Cholesterol LDL Cholesterol Direct HDL Cholesterol Cholesterol/HDL Ratio Urine Color Urine Turbidity Urine pH Ur Specific [place] Urine Protein Urine Glucose (UA) Urine Ketones Urine Blood Urine Nitrite Urine Bilirubin Urine Urobilinogen Ur Leukocyte Esterase Urine WBC (Auto) Urine RBC (Auto) 02/22/17 02/22/17 02/22/17 05:05 05:45 06:08 WBC RBC Hgb Hct MCV MCH MCHC RDW Plt Count Add Manual Diff Total Counted Seg Neutrophils % Seg Neuts % (Manual) Band Neutrophils % Lymphocytes % (Manual) Reactive Lymphs % (Man) Monocytes % (Manual) Eosinophils % (Manual) Basophils % (Manual) Metamyelocytes % Myelocytes % Promyelocytes % Blast Cells % Nucleated RBC % Seg Neutrophils # Man Band Neutrophils # Lymphocytes # (Manual) Abs React Lymphs (Man) Monocytes # (Manual) Eosinophils # (Manual) Basophils # (Manual) Metamyelocytes # Myelocytes # Promyelocytes # Blast Cells # WBC Morphology Hypersegmented Neuts Hyposegmented Neuts Hypogranular Neuts Smudge Cells Toxic Granulation Toxic Vacuolation Dohle Bodies Pelger-Huet Anomaly Stevie Rods Platelet Estimate Clumped Platelets Plt Clumps, EDTA Large Platelets Giant Platelets Platelet Satelliting Plt Morphology Comment RBC Morphology Dimorphic RBCs Polychromasia Hypochromasia Poikilocytosis Anisocytosis Microcytosis Macrocytosis Spherocytes Pappenheimer Bodies Sickle Cells Target Cells Tear Drop Cells Ovalocytes Helmet Cells Parker-Bodega Bodies [place] Rings Pearl Cells Bite Cells Crenated Cell Elliptocytes Acanthocytes (Spur) Rouleaux Hemoglobin C Crystals Schistocytes Malaria parasites Abhijeet Bodies Hem Pathologist Commnt PT INR APTT POC ABG pH POC ABG pCO2 POC ABG pO2 POC ABG HCO3 POC ABG Total CO2 POC ABG O2 Sat POC ABG Base Excess FiO2 Sodium Potassium Chloride Carbon Dioxide Anion Gap BUN Creatinine Estimated GFR BUN/Creatinine Ratio Glucose Lactic Acid 4.2 H* Calcium Total Bilirubin AST ALT Alkaline Phosphatase Total Creatine Kinase 18 L CK-MB (CK-2) < 1.0 CK-MB (CK-2) Rel Index 5.5 H Troponin T 0.047 H Total Protein Albumin Albumin/Globulin Ratio Triglycerides 67 Cholesterol 65 LDL Cholesterol Direct 26 L HDL Cholesterol 26 L Cholesterol/HDL Ratio 2.50 Urine Color [place] Urine Turbidity Slightly-cloudy Urine pH 5.0 Ur Specific [place] 1.024 Urine Protein 100 mg/dl Urine Glucose (UA) Neg Urine Ketones Tr Urine Blood Sm Urine Nitrite Neg Urine Bilirubin Neg Urine Urobilinogen < 2.0 Ur Leukocyte Esterase Neg Urine WBC (Auto) < 1.0 Urine RBC (Auto) 0.0 02/22/17 06:11 WBC RBC Hgb Hct MCV MCH MCHC RDW Plt Count Add Manual Diff Total Counted Seg Neutrophils % Seg Neuts % (Manual) Band Neutrophils % Lymphocytes % (Manual) Reactive Lymphs % (Man) Monocytes % (Manual) Eosinophils % (Manual) Basophils % (Manual) Metamyelocytes % Myelocytes % Promyelocytes % Blast Cells % Nucleated RBC % Seg Neutrophils # Man Band Neutrophils # Lymphocytes # (Manual) Abs React Lymphs (Man) Monocytes # (Manual) Eosinophils # (Manual) Basophils # (Manual) Metamyelocytes # Myelocytes # Promyelocytes # Blast Cells # WBC Morphology Hypersegmented Neuts Hyposegmented Neuts Hypogranular Neuts Smudge Cells Toxic Granulation Toxic Vacuolation Dohle Bodies Pelger-Huet Anomaly Stevie Rods Platelet Estimate Clumped Platelets Plt Clumps, EDTA Large Platelets Giant Platelets Platelet Satelliting Plt Morphology Comment RBC Morphology Dimorphic RBCs Polychromasia Hypochromasia Poikilocytosis Anisocytosis Microcytosis Macrocytosis Spherocytes Pappenheimer Bodies Sickle Cells Target Cells Tear Drop Cells Ovalocytes Helmet Cells Parker-Bodega Bodies [place] Rings Pearl Cells Bite Cells Crenated Cell Elliptocytes Acanthocytes (Spur) Rouleaux Hemoglobin C Crystals Schistocytes Malaria parasites Abhijeet Bodies Hem Pathologist Commnt PT INR APTT POC ABG pH 7.440 POC ABG pCO2 38.0 POC ABG pO2 67 L POC ABG HCO3 25.8 POC ABG Total CO2 27 POC ABG O2 Sat 94 POC ABG Base Excess 2 FiO2 100 Sodium Potassium Chloride Carbon Dioxide Anion Gap BUN Creatinine Estimated GFR BUN/Creatinine Ratio Glucose Lactic Acid Calcium Total Bilirubin AST ALT Alkaline Phosphatase Total Creatine Kinase CK-MB (CK-2) CK-MB (CK-2) Rel Index Troponin T Total Protein Albumin Albumin/Globulin Ratio Triglycerides Cholesterol LDL Cholesterol Direct HDL Cholesterol Cholesterol/HDL Ratio Urine Color Urine Turbidity Urine pH Ur Specific [place] Urine Protein Urine Glucose (UA) Urine Ketones Urine Blood Urine Nitrite Urine Bilirubin Urine Urobilinogen Ur Leukocyte Esterase Urine WBC (Auto) Urine RBC (Auto) - EKG Data -: EKG Interpreted by Me Rate: tachycardia - EKG Data 02/22/17 08:22 atrial fibrillation, rapid ventricular response, 146 bpm, right bundle branch block, not consistent with STEMI. 02/22/17 09:39 EKG #2 demonstrates atrial fibrillation, QTC 494 ms, premature ventricular contractions, incomplete right bundle-branch block, motion artifact , RVR has resolved. - Radiology Data Radiology results: report reviewed X-ray of the chest demonstrates diffuse infiltrates at the right lung base, soft tissue mediastinal mass, dilated air-fluid loops of bowel in the upper abdomen. Critical Care Time: Yes Critical care time in (mins) excluding proc time.: 75 Critical care attestation.: If time is entered above; I have spent that time in minutes in the direct care of this critically ill patient, excluding procedure time. Critical Care Time: Critical care time includes multiple bedside evaluations, interpretation of radiology studies, laboratory studies, multiple calls that were patient's healthcare proxy to determine goals of care. This does not include procedure time. ED Disposition Clinical Impression: Respiratory failure, Hypernatremia Disposition: OP ADMITTED IP TO THIS HOSP Is pt being admited?: Yes Condition: Critical
[2017-02-22 06:48] LABS: Bilirubin,Urine NEG (Negative); Blood,Urine SM (Negative); Ketones,Urine TR mg/dL (Negative); Leukocyte Esterase,Urine NEG (Negative); Nitrite,Urine NEG (Negative); Urobilinogen,Urine < 2.0 mg/dL (<2.0); WBC,Urine < 1.0 /HPF (0.0-6.0)
--- NOTE | 2017-02-22 06:52 | XRay Report ---
FINAL REPORT PROCEDURE: XR CHEST 1V AP TECHNIQUE: Chest radiograph anteroposterior view. CPT 94759 HISTORY: Dyspnea COMPARISON: No prior studies are available for comparison. FINDINGS: Heart size is normal. There is suboptimal inspiration. There are diffuse infiltrates at the right lung base which could be due to pneumonitis. There is a soft tissue density mediastinal mass surrounding the trachea suggesting substernal goiter, adenopathy or mediastinal tumor. CT of the chest suggested for further evaluation. There is no pleural effusion or pneumothorax. There are degenerative changes of the glenohumeral joints. There are dilated air-filled loops of bowel in the upper abdomen. Ileus or obstruction not excluded. IMPRESSION: Heart size is normal. There are diffuse infiltrates at the right lung base which could be due to pneumonitis. There is a soft tissue density mediastinal mass surrounding the trachea suggesting substernal goiter, adenopathy or mediastinal tumor. CT of the chest suggested for further evaluation. There are dilated air-filled loops of bowel in the upper abdomen. Ileus or obstruction not excluded. .
[2017-02-22 07:22] LABS: Anisocytosis 1+; Basophils % (Manual) 0 % (0.0-1.8); Blastocytes % (Manual) 0 %; Diff Status Complete; Eosinophils % (Manual) 0 % (0.0-4.3)
--- NOTE | 2017-02-22 07:47 | History and Physical Report ---
History of Present Illness Date of examination: 02/22/17 Date of admission: 02/22/17 History of present illness: 81-year-old male patient with significant past medical history of severe dementia atrial fibrillation, hypertension type 2 diabetes mellitus metabolic encephalopathy DO NOT RESUSCITATE status and longterm resident was brought to the emergency room with history of worsening shortness of breath since this morning Patient is evaluated in the emergency room, noted to have right-sided pneumonia with acute hypoxemic respiratory failure A. 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 denies: smoking, alcohol abuse, prescription drug abuse Family history: no significant family history (no known family history) Medications and Allergies Allergies Allergy/AdvReac Type Severity Reaction Status Date / Time No Known Allergies Allergy Unverified 08/16/16 11:38 Home Medications Medication Instructions Recorded Confirmed Last Taken Type Aspirin [Aspirin TAB] 81 mg PO QDAY tablet 09/11/16 09/29/16 1 Day Ago Rx 81 Folic Acid [Folvite] 1 mg PO QDAY tablet 09/11/16 09/29/16 1 Day Ago Rx 1 Metoprolol [Lopressor TAB] 25 mg PO BID #60 tablet 09/11/16 12/17/16 1 Day Ago Rx 25 Rivastigmine Tartrate [Exelon] 1.5 mg PO BID capsule 09/11/16 12/17/16 1 Day Ago Rx 1.5 Thiamine [Vitamin B-1] 100 mg PO QDAY tablet 09/11/16 12/17/16 1 Day Ago Rx 100 traZODone [Desyrel] 50 mg PO QHS tablet 09/11/16 12/17/16 1 Day Ago Rx 50 AtorvaSTATin [Lipitor] 20 mg PO QHS #30 tablet 12/18/16 Unknown Rx Memantine HCl [Namenda] 10 mg PO BID #60 ml 12/18/16 Unknown Rx risperiDONE [RisperDAL] 0.25 mg PO QHS #60 tablet 12/18/16 12/17/16 1 Day Ago Rx 0.25 Active Meds: Active Medications Aspirin (Aspirin) 81 mg PO QDAY [facility]ANIA Atorvastatin Calcium (Lipitor) 20 mg PO QHS [facility] Folic Acid (Folvite) 1 mg PO QDAY [facility] Vancomycin HCl (Vancomycin/Ns 1 Gm/250 Ml) 1 gm in 250 mls @ 167.007 mls/hr IV ONCE ONE PRN Reason: Protocol Stop: 02/22/17 07:48 Last Admin: 02/22/17 06:49 Dose: 167.007 mls/hr Metoprolol Tartrate (Lopressor) 25 mg PO BID [facility] Miscellaneous Medication (Memantine Hcl [Namenda]) 10 mg PO BID [facility] Risperidone (Risperdal) 0.25 mg PO QHS [facility] Rivastigmine Tartrate (Exelon) 1.5 mg PO BID [facility] Thiamine HCl (Vitamin B-1) 100 mg PO QDAY [facility] Trazodone HCl (Desyrel) 50 mg PO QHS [facility] Review of Systems ROS unobtainable: due to mental status Exam - Constitutional Vitals: Temp Pulse Resp BP Pulse Ox 99.2 F 106 H 40 H 124/67 86 02/22/17 05:30 02/22/17 07:01 02/22/17 07:01 02/22/17 07:01 02/22/17 07:01 General appearance: Present: mild distress, cachectic, disheveled, other ( minimally communicative) - EENT Eyes: Present: PERRL, EOM intact - Neck Neck: Present: supple, normal ROM - Respiratory Respiratory effort: normal Respiratory: bilateral: diminished, rhonchi - Cardiovascular Rhythm: regular Heart Sounds: Present: S1 & S2 - Extremities Extremities: no ischemia, pulses intact, pulses symmetrical, abnormal ( contracted) - Abdominal General gastrointestinal: Present: soft, non-tender, non-distended, normal bowel sounds - Integumentary Integumentary: Present: clear, warm - Musculoskeletal Musculoskeletal: other (noncommunicative) - Psychiatric Psychiatric: other (on communicative) - Neurologic Neurologic: other (noncommunicative) Results - Labs CBC & Chem 7: 02/22/17 05:05 02/22/17 05:05 Labs: Abnormal lab results 02/22/17 02/22/17 02/22/17 Range/Units 05:05 05:05 05:05 Hgb 10.5 L (11.8-15.2) gm/dl Hct 33.9 L (35.5-45.6) % MCV 83 L (84-94) fl MCH 26 L (28-32) pg MCHC 31 L (32-34) % RDW 15.5 H (13.2-15.2) % Seg Neuts % (Manual) 96.0 H (40.0-70.0) % Lymphocytes % (Manual) 0 L (13.4-35.0) % Seg Neutrophils # Man 10.4 H (1.8-7.7) K/mm3 Lymphocytes # (Manual) 0.0 L (1.2-5.4) K/mm3 PT 16.4 H (12.2-14.9) Sec. INR 1.33 H (0.87-1.13) APTT 44.9 H (24.2-36.6) Sec. POC ABG pO2 (80-105) Sodium 154 H (137-145) mmol/L Chloride 113.7 H (98-107) mmol/L BUN 21 H (9-20) mg/dL Glucose 144 H (75-100) mg/dL Lactic Acid (0.7-2.0) mmol/L Total Creatine Kinase (55-170) units/L CK-MB (CK-2) Rel Index (0-4) Troponin T (0.00-0.029) ng/mL Albumin 1.8 L (3.9-5) g/dL LDL Cholesterol Direct (50-130) mg/dL HDL Cholesterol (40-59) mg/dL 02/22/17 02/22/17 02/22/17 Range/Units 05:05 05:45 06:11 Hgb (11.8-15.2) gm/dl Hct (35.5-45.6) % MCV (84-94) fl MCH (28-32) pg MCHC (32-34) % RDW (13.2-15.2) % Seg Neuts % (Manual) (40.0-70.0) % Lymphocytes % (Manual) (13.4-35.0) % Seg Neutrophils # Man (1.8-7.7) K/mm3 Lymphocytes # (Manual) (1.2-5.4) K/mm3 PT (12.2-14.9) Sec. INR (0.87-1.13) APTT (24.2-36.6) Sec. POC ABG pO2 67 L (80-105) Sodium (137-145) mmol/L Chloride (98-107) mmol/L BUN (9-20) mg/dL Glucose (75-100) mg/dL Lactic Acid 4.2 H* (0.7-2.0) mmol/L Total Creatine Kinase 18 L (55-170) units/L CK-MB (CK-2) Rel Index 5.5 H (0-4) Troponin T 0.047 H (0.00-0.029) ng/mL Albumin (3.9-5) g/dL LDL Cholesterol Direct 26 L (50-130) mg/dL HDL Cholesterol 26 L (40-59) mg/dL Assessment and Plan --Acute hypoxemic respiratory failure Continue BiPAP, oxygen titrated to O2 sats more than 90% Nebulizers, IV steroids, IV antibiotics Patient is DO NOT RESUSCITATE status, supportive care --A. fib with rapid ventricular rate Continue with the blockers, abortive care --Hypernatremia Secondary to dehydration, D5W IV fluids, free water if tolerated by mouth Closely monitor electrolytes --Lactic acidosis probably secondary to underlying pneumonia Cultures IV antibiotics --Nonspecific elevation of cardiac enzymes Probably secondary to A. fib with rapid and closely Family did not want aggressive workup, continue medical management --Severe dementia, continue current management --Dyslipidemia resume lipid-lowering medications --DVT prophylaxis with Lovenox --DO NOT RESUSCITATE status Admitted to medical floor Case management/director social welfare for DC planning Recommend hospice at longterm versus home hospice Plan of care discussed with the patient's nurse and the ER physician
[2017-02-22] MEDS ORDERED: ASPIRIN PO SCH (10:00)
[2017-02-22] MEDS ORDERED: NON-FORMULARY (Memantine Hcl [Namenda] 10 MG) PO SCH (10:00)
--- NOTE | 2017-02-22 10:25 | Admit Criteria Form ---
Admission Criteria Documentation: RESPIRATORY FAILURE GRG Clinical Indications for Admission to Inpatient Care (Place 'X' for any and all applicable criteria): Hospital admission is needed for appropriate care of the patient because of acute respiratory failure or insufficiency as indicated by ANY ONE of the following(1)(2)(3)(4)(5)(6)(7)(8): [ ]I. Mechanical ventilation needed (acute invasive or noninvasive) [ ]II. Severe ventilation deficit as indicated by ANY ONE of the following (9) [ ]a) Respiratory acidosis (pH less than 7.32 and partial pressure of carbon dioxide greater than 40 mm Hg (5.3 kPa)) [ ]b) Partial pressure of carbon dioxide greater than 44 mm Hg (5.9 kPa ) (new) [ ]c) Airflow measurements less than 25% of predicted (eg, peak expiratory flow rate less than 100 L/minute) [ ]d) Forced vital capacity less than 15 mL/kg of ideal body weight, or 50% decrease in vital capacity from baseline [ ]III. Noncardiac pulmonary edema not resolving with rapid emergency treatment (8) [ x]IV. Severe respiratory distress as indicated by ANY ONE of the following: [x ]a) Severe tachypnea (respiratory rate greater than 30, greater than 45 for 6-month-old, greater than 60 for ) [ ]b) Severe hypoxemia (partial pressure of oxygen less than 50 mm Hg ( 6.7 kPa) on greater than 50% oxygen or partial pressure of oxygen to FIO2 ratio less than 200) [ ]c) Mental status deterioration from respiratory disease [ ]V. Airway obstruction or inadequate protection [A](10)(11) The original [employer] content created by [employer] has been revised. The portions of the content which have been revised are identified through the use of italic text or in bold, and [facility] [employer] has neither reviewed nor approved the modified material. All other unmodified content is copyright [employer]. Please see references footnoted in the original [employer] edition 2016 Admission Criteria Met: Yes
[2017-02-22] MEDS: D5W 1,000 ML IV SCH (17:16)
[2017-02-22] MEDS: VITAMIN B-1 PO SCH (17:29)
[2017-02-22] MEDS: FOLVITE PO SCH (17:30)
[2017-02-22] MEDS: NAMENDA XR PO SCH (17:30)
[2017-02-22] MEDS: LOPRESSOR PO SCH ×2 (17:30→22:00)
[2017-02-22] MEDS: EXELON PO SCH ×2 (17:31→22:00)
[2017-02-22] MEDS ORDERED: DESYREL PO SCH (22:00)
[2017-02-22] MEDS ORDERED: RisperDAL PO SCH (22:00)
[2017-02-23] MEDS: D5W 1,000 ML IV SCH (02:41)
[2017-02-23 07:21] LABS: Hematocrit 33.2 % (35.5-45.6); Hemoglobin 10.4 gm/dl (11.8-15.2); Mean Corpuscular HGB Conc 31 % (32-34); Mean Corpuscular Volume 83 fl (84-94); Platelet Count 308 K/mm3 (140-440); Red Blood Count 4.02 M/mm3 (3.65-5.03); Red Cell Distribution Width 16.1 % (13.2-15.2); White Blood Count 13.3 K/mm3 (4.5-11.0)
[2017-02-23 07:24] LABS: Mean Corpuscular Hemoglobin 26 pg (28-32)
[2017-02-23 07:48] LABS: Anion Gap 15 mmol/L; BUN/Creatinine Ratio 31.42; Blood Urea Nitrogen 22 mg/dL (9-20); Calcium 8.6 mg/dL (8.4-10.2); Carbon Dioxide 26 mmol/L (22-30); Chloride 114.8 mmol/L (98-107); Glucose 149 mg/dL (75-100); Magnesium 1.9 mg/dL (1.7-2.3); Potassium 3.5 mmol/L (3.6-5.0); Sodium 152 mmol/L (137-145)
[2017-02-23 08:23] LABS: Basophils % (Manual) 0 % (0.0-1.8); Blastocytes % (Manual) 0 %; Eosinophils % (Manual) 0 % (0.0-4.3)
[2017-02-23 08:24] LABS: Anisocytosis 1+; Diff Status Complete; Large Platelets 1+; Platelet Estimate Consistent w Auto; Polychromasia Rare
[2017-02-23] MEDS: KCL 10MEQ/100ML 10 MEQ/100 ML BAG IV SCH ×2 (10:00→11:30)
[2017-02-23] MEDS ORDERED: HALFPRIN EC PO SCH (10:00)
[2017-02-23] MEDS: NAMENDA XR PO SCH (10:15)
[2017-02-23] MEDS: VITAMIN B-1 PO SCH (10:15)
[2017-02-23] MEDS: LOPRESSOR PO SCH (10:15)
[2017-02-23] MEDS: EXELON PO SCH (10:15)
[2017-02-23] MEDS: FOLVITE PO SCH (10:15)
[2017-02-23 11:06] VITALS: BP 101/74
--- NOTE | 2017-02-23 14:34 | Discharge Summary ---
Providers - Providers Date of Admission: 02/22/17 08:45 Date of discharge: 02/23/17 Attending physician: MAURY MORALES Primary care physician: ANCILLARY SPECIALIST Hospitalization Condition: Critical Disposition: DC/TX SNF W [facility] CERT Core Measure Documentation - Palliative Care Palliative Care/ Comfort Measures: Hospice Care - Core Measures Any of the following diagnoses?: none Exam - Constitutional Vitals: Temp Pulse Resp BP Pulse Ox 98 F 77 33 H 101/74 98 02/23/17 08:00 02/23/17 08:54 02/23/17 08:54 02/23/17 08:00 02/23/17 08:54 General appearance: Present: no acute distress, cachectic, disheveled - EENT Eyes: Present: PERRL, EOM intact - Neck Neck: Present: supple - Respiratory Respiratory effort: normal Respiratory: negative: rales, rhonchi, wheezing - Cardiovascular Rhythm: regular Heart Sounds: Present: S1 & S2 - Extremities Extremities: no ischemia, pulses intact, pulses symmetrical - Abdominal General gastrointestinal: Present: soft, non-tender, non-distended, normal bowel sounds - Integumentary Integumentary: Present: clear, warm - Musculoskeletal Musculoskeletal: other (unresponsive) - Psychiatric Psychiatric: other (unresponsive) Plan Activity: advance as tolerated Diet: other (as tolerated) Additional Instructions: comfort care per Hospice med director Follow up with: PRIMARY CAREMD [Primary Care Provider] - 3-5 Days
== END 2017-02-23 19:10 | disposition hospice, home (50) | DRG 193 ==
LOC: ED 05:06 → CC2 08:45
PROVIDERS: ADMIT Internal Medicine; ATTEND Internal Medicine
PROC: 5A09357 Assistance with Respiratory Ventilation, Less than 24 Consecutive Hours, Continuous Positive Airway Pressure (ICD-10-PCS; principal; 2017-02-22)
PROC: 4A033R1 Measurement of Arterial Saturation, Peripheral, Percutaneous Approach (ICD-10-PCS; 2017-02-22)
DX: J18.9 Pneumonia, unspecified organism (principal); G93.41 Metabolic encephalopathy; J96.01 Acute respiratory failure with hypoxia; E87.0 Hyperosmolality and hypernatremia; E87.2 Acidosis; I48.91 Unspecified atrial fibrillation; F03.90 Unspecified dementia, unspecified severity, without behavioral disturbance, psychotic disturbance, mood disturbance, and anxiety; E11.9 Type 2 diabetes mellitus without complications; Z66 Do not resuscitate; I10 Essential (primary) hypertension; E86.0 Dehydration
CPT/HCPCS: 36415; 71010; 80048; 80053; 80061; 81001; 82140; 82550; 82553; 82803; 82962; 83735; 84484; 85007; 85025; 85610; 85730; 87040; 93005; 93010; 96365; 96367; 99292; J2543; J3370; J3480; J7030; J7070